=== PATIENT | male | born 1995 | race Caucasian/White ===

== ENCOUNTER 2020-09-23 10:39 | Emergency (ER) | payer OTHER, SELFPAY ==
[2020-09-23 11:09] VITALS: BP 132/77; PULSE 89; RESP 16; TEMP 36.8; O2SAT 98
--- NOTE | 2020-09-23 11:39 | ED.LOWEXIN ---
HPI - Extremity Injury (Lower) General Chief Complaint: Extremity Injury, Lower Stated Complaint: Knee Pain Source: patient Mode of arrival: ambulatory Limitations: clinical condition History of Present Illness HPI Narrative: Patient is a 25-year-old male who presents complaining of bilateral knee pain, increasing over the past few weeks. 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 He denies injury to knees. He denies all other complaints. He denies taking [id number] medications at this time for pain relief. Related Data Allergies Allergy/AdvReac Type Severity Reaction Status Date / Time No Known Allergies Allergy Verified 09/23/20 11:25 Review of Systems Review of Systems: Narrative: CONSTITUTIONAL: Denies fever, chills, or sweats. EYES: Denies visual changes, redness, or discharge. ENT: Denies rhinorrhea, congestion, sore throat, or otalgia. CARDIOVASCULAR: Denies chest pain, palpitations, or edema. RESPIRATORY: Denies cough or dyspnea. GASTROINTESTINAL: Denies abdominal pain, nausea, vomiting, or diarrhea. GENITOURINARY: Denies dysuria or hematuria. SKIN: Denies rash or itching. MUSCULOSKELETAL: Bilateral knee pain NEUROLOGIC: Denies headache, numbness, dizziness, or weakness. PSYCHIATRIC: Denies anxiety or depression. PMFSH Past Medical History Medical History No significant past medical history Surgical History Surgical History No significant past surgical history Family History Family History (Updated 09/23/20 @ 11:42 by LENA Romo) Other No significant family history Social History Social History (Updated 09/23/20 @ 11:42 by LENA Romo) Smoking status: Never smoker Alcohol intake: never Substance use: never Living arrangements: with family Occupation/Education: occupation Exam Narrative: Exam Narrative: GENERAL: Well-appearing, well-nourished, and in no acute distress. HEAD: Normocephalic, atraumatic. EYES: No redness or drainage. Conjunctiva are normal. ENT: Mucous membranes pink and moist. CHEST: No respiratory distress. MUSCULOSKELETAL: No bony tenderness. EXTREMITIES: Normal range of motion. No edema or erythema to bilateral knees. SKIN: Warm, dry, no rash. NEURO: No focal deficits. Alert and oriented x3. Gait steady. PSYCH: Normal affect. No signs of depression or anxiety. Course Vital Signs Vital signs: Vital Signs Temperature 36.8 C 09/23/20 11:09 Pulse Rate 89 09/23/20 11:09 Respiratory Rate 16 09/23/20 11:09 Blood Pressure 132/77 09/23/20 11:09 Pulse Oximetry 98 09/23/20 11:09 Temperature 36.8 C 09/23/20 11:09 Pulse Rate 89 09/23/20 11:09 Respiratory Rate 16 09/23/20 11:09 Blood Pressure 132/77 09/23/20 11:09 Pulse Oximetry 98 09/23/20 11:09 Reviewed. Patient has been instructed to follow-up with his PCP regarding his blood pressure. MDM - Extremity Injury (Lower) MDM Narrative Medical decision making narrative: Patient most likely has musculoskeletal pain to bilateral knees that needs further evaluation. X-rays not obtained as patient has no new injuries. Discussed with patient following up with orthopedics as well as with PCP. Patient agrees with plan of care. Patient is stable for discharge home with outpatient follow-up as discussed. Differential Diagnosis Differential diagnosis: Likely acute internal derangement of knee and other (Knee pain, sprain, strain) Critical Care Time Critical Care Time Critical Care Time: No Discharge Plan Discharge Clinical Impression: Bilateral knee pain Patient Disposition: Home, Self-Care Condition: Stable Instructions: Antibiotic Form, Knee Pain (ED) Additional Instructions: Take ibuprofen as needed. Ice or heat for pain. Follow-up with orthopedics as discussed.
== END 2020-09-23 11:50 | disposition home or self-care (01) ==
PROVIDERS: Emergency Provider Nurse Practitioner; PCP Internal Medicine
DX: M25.562 Pain in left knee (principal); M25.561 Pain in right knee
CPT/HCPCS: 99213; G0463